=== PATIENT | female | born 1955 | race Caucasian/White ===

== ENCOUNTER → 2017-04-17 16:53 | Outpatient (CLI) | payer BC, OTHER | END | disposition home or self-care (01) | LOC: D.MAMMO 14:30 | DX: Z12.31 Encounter for screening mammogram for malignant neoplasm of breast (principal) ==

== ENCOUNTER 2020-06-16 11:45 | Outpatient (CLI) | payer BC | END 2020-06-16 11:50 | disposition home or self-care (01) | LOC: D.MAMMO 11:45 | PROVIDERS: ATTEND Radiology Vascular & Interventional Radiology | DX: Z12.31 Encounter for screening mammogram for malignant neoplasm of breast (principal) ==